=== PATIENT | male | born 1990 | race Caucasian/White ===

== ENCOUNTER 2016-07-18 11:17 | Emergency (ER) | payer SELFPAY ==
[~2016-07-18] VITALS: Ht 167.6 cm; Wt 104.5 kg
[~2016-07-18 11:17] MED LIST: DICL50 PO; ROBA750T3 PO
[2016-07-18 11:19] VITALS: BP 166/90; PULSE 134; RESP 17; TEMP 101.5; O2SAT 97
--- NOTE | 2016-07-18 11:31 | PD ---
HPI Chief Complaint: Cold / Flu Symptoms Time Seen by Provider: 11:30 Travel History International Travel<30 days: No Contact w/Intl Traveler<30days: No Traveled to known affect area: No History of Present Illness HPI 25-year-old male with PMH of hypertension presents to the ED for evaluation of a 5 day history of body aches, malaise, fevers, chills, sinus congestion, nausea and vomiting. Gradual onset. Patient denies anorexia, change in bowel habits, neck pain, back pain, dysuria. He's been treating at home with Tammy with no improvement of symptoms. Endorses multiple sick contacts, stating all his schoolmates are ill. He denies this years flu immunization. NKDA. PFSH Past Medical History Cardiovascular Problems: Yes (HIGH CHOLESTEROL, HTN ) Hypertension: Yes Social History Alcohol Use: Yes (occ) Tobacco Use: No Substance Use: No Allergies-Medications (Allergen,Severity, Reaction): Coded Allergies: No Known Allergies (Unverified , 07/18/16) Reported Meds & Prescriptions Reported Meds & Active Scripts Active Zofran Odt (Ondansetron Odt) 4 Mg Tab 4 Mg SL Q8HR PRN Ibuprofen 800 Mg Tab 800 Mg PO TID Reported Aspirin 81 Mg Chew 81 Mg CHEW DAILY Review of Systems Except as stated in HPI: all other systems reviewed are Neg Physical Exam Narrative GENERAL: Well-nourished, well-developed ill-appearing male in no acute distress. SKIN: Warm and dry. HEAD: Normocephalic. Atraumatic. EYES: No scleral icterus. No injection or drainage. PERRLA. EOMI. ENT: [place] tympanic membranes bilaterally. Nasal mucosa is moist. Oropharynx mildly erythematous without edema or exudate. Uvula midline. Airway patent. NECK: Supple, trachea midline. No JVD. Tender bilateral submandibular LAD. No nuchal rigidity. CARDIOVASCULAR: Regular rate and rhythm without murmurs, gallops, or rubs. 2+ DP and radial pulses bilaterally. RESPIRATORY: Breath sounds clear and equal bilaterally. No accessory muscle use. GASTROINTESTINAL: Abdomen soft, non-tender, nondistended. + Bowel sounds MUSCULOSKELETAL: No cyanosis, or edema. The patient is ambulatory and moves extremities spontaneously. BACK: Nontender without obvious deformity. No CVA tenderness. Data Data Last Documented VS Vital Signs Date Time Temp Pulse Resp B/P Pulse Ox O2 Delivery O2 Flow Rate FiO2 07/18/16 14:07 102 07/18/16 13:36 98.9 22 127/56 99 Room Air Orders Electrocardiogram (07/18/16 11:41) Complete Blood Count With Diff (07/18/16 11:41) Comprehensive Metabolic Panel (07/18/16 11:41) Group A Rapid Strep Screen (07/18/16 11:41) Influenzae A/B Antigen (07/18/16 11:41) Chest, Single Ap (07/18/16 11:41) Ecg Monitoring (07/18/16 11:41) Iv Access Insert/Monitor (07/18/16 11:41) Oximetry (07/18/16 11:41) Acetaminophen (Tylenol) (07/18/16 11:45) Sodium Chloride 0.9% Flush (Ns Flush) (07/18/16 11:45) Ondansetron Odt (Zofran Odt) (07/18/16 11:45) Sodium Chlor 0.9% 1000 Ml Inj (Ns 1000 M (07/18/16 11:45) Strep Culture (Group A) (07/18/16 11:51) Sodium Chlor 0.9% 1000 Ml Inj (Ns 1000 M (07/18/16 13:15) Ketorolac Inj (Toradol Inj) (07/18/16 13:30) Labs Laboratory Tests Test 07/18/16 11:51 White Blood Count 8.6 TH/MM3 Red Blood Count 5.40 MIL/MM3 Hemoglobin 15.0 GM/DL Hematocrit 45.0 % Mean Corpuscular Volume 83.3 FL Mean Corpuscular Hemoglobin 27.7 PG Mean Corpuscular Hemoglobin 33.3 % Concent Red Cell Distribution Width 13.2 % Platelet Count 183 TH/MM3 Mean Platelet Volume 7.6 FL Neutrophils (%) (Auto) 74.0 % Lymphocytes (%) (Auto) 10.4 % Monocytes (%) (Auto) 12.7 % Eosinophils (%) (Auto) 2.2 % Basophils (%) (Auto) 0.7 % Neutrophils # (Auto) 6.4 TH/MM3 Lymphocytes # (Auto) 0.9 TH/MM3 Monocytes # (Auto) 1.1 TH/MM3 Eosinophils # (Auto) 0.2 TH/MM3 Basophils # (Auto) 0.1 TH/MM3 CBC Comment DIFF FINAL Differential Comment Sodium Level 140 MEQ/L Potassium Level 3.9 MEQ/L Chloride Level 106 MEQ/L Carbon Dioxide Level 25.8 MEQ/L Anion Gap 8 MEQ/L Blood Urea Nitrogen 9 MG/DL Creatinine 1.17 MG/DL Estimat Glomerular Filtration 77 ML/MIN Rate Random Glucose 111 MG/DL Calcium Level 8.6 MG/DL Total Bilirubin 0.4 MG/DL Aspartate Amino Transf 27 U/L (AST/SGOT) Alanine Aminotransferase 52 U/L (ALT/SGPT) Alkaline Phosphatase 70 U/L Total Protein 7.1 GM/DL Albumin 3.8 GM/DL [facility] Medical Decision Making Medical Screen Exam Complete: Yes Emergency Medical Condition: Yes Differential Diagnosis Influenza versus viral syndrome versus pharyngitis versus pneumonia versus other Narrative Course 25-year-old male with PMH of hypertension presents to the ED for evaluation of a 5 day history of body aches, malaise, fevers, chills, sinus congestion, nonproductive cough, nausea and vomiting. Gradual onset. Patient denies anorexia, change in bowel habits, neck pain, back pain, dysuria. Endorses multiple sick contacts, stating all his schoolmates are ill. He denies this years flu immunization. Vitals reviewed. The patient is tachycardic rate 134 and febrile 101.5 on presentation. Physical exam reveals an ill-appearing male in no acute distress but is otherwise unremarkable. IV was established. The patient was placed on continuous monitoring. He was administered 2 L normal saline bolus, Tylenol, Zofran, Toradol. CBC: No leukocytosis or anemia. CMP: Unremarkable. EKG rate 123, sinus tachycardia. Normal intervals. Normal axis. No ischemic changes. Reviewed by Dr. Bailey. CXR: No acute cardiopulmonary abnormality per radiology read. Group A strep swab: Negative. Influenza swab: Positive for influenza A. On recheck the patient is afebrile, heart rate 102. Patient's been symptomatic beyond 48 hours. No indication for Tamiflu. He is prescribed 800 mg ibuprofen and Zofran. He is encouraged to treat symptomatically with ibuprofen, Zofran, increase fluid intake, isolate from vulnerable populations, return to the ED for worsening of symptoms. He indicated understanding of the instructions, is amenable to the plan of care. He is stable and discharged home. Diagnosis Primary Impression: Influenza A Referrals: Primary Care Physician Patient Instructions: General Instructions, Influenza (ED) Additional Instructions: Rest, hydrate. Continue symptomatic treatment with 800 mg ibuprofen every 8 hours as needed for fever, body aches. Zofran ODT as needed for continued nausea. Increased handwashing frequency, isolate from vulnerable populations, wash all bedding after illness. Follow-up with the primary care provider this week. Return to the ED for any urgent or emergent medical condition. Med/Other Pt SpecificInfo: Prescription(s) given Scripts Ondansetron Odt (Zofran Odt)4 Mg Tab4 Mg SL Q8HR PRN (Nausea/Vomiting) #5 TAB Ref 0 Prov:López Bailey MD 07/18/16 Ibuprofen 800 Mg [id number] Mg PO TID #15 TAB Ref 0 Prov:López Bailey MD 07/18/16 Disposition: 01 DISCHARGE HOME Condition: Stable Jessie Shah Jul 18, 2016 11:31
[2016-07-18] MEDS ORDERED: ASPI81CH CHEW (11:34)
[2016-07-18] MEDS ORDERED: SODIUM CHLORIDE 0.9% FLUSH 5 ML FLUSH IVF PRN (11:45)
[2016-07-18] MEDS ORDERED: SODIUM CHLOR 0.9% 1000 ML INJ 1,000 ML IV ONE ×2 (11:45→13:15)
[2016-07-18] MEDS ORDERED: ONDANSETRON ODT 4 MG TAB PO ONE (11:45)
[2016-07-18] MEDS ORDERED: ACETAMINOPHEN 325 MG TAB PO ONE (11:45)
[2016-07-18 11:46] VITALS: BP 169/98; PULSE 134; RESP 20; TEMP 102.3; O2SAT 96
[2016-07-18 11:52] VITALS: O2SAT 96
--- NOTE | 2016-07-18 12:13 | RADRPT ---
EXAM DATE/TIME: 07/18/2016 11:52 [facility] COMPARISON: No previous studies available for comparison. INDICATIONS : Fever MEDICAL HISTORY : Hypertension. SURGICAL HISTORY : None. ENCOUNTER: Initial ACUITY: 1 week PAIN SCORE: 0/10 LOCATION: Bilateral chest FINDINGS: Portable AP view of the chest demonstrates a normal-sized cardiac silhouette. No effusion, consolidat ion, or pneumothorax is visualized. The bones and soft tissues demonstrate no acute abnormality. CONCLUSION: No acute cardiopulmonary abnormality is identified. Darrius Adam MD on July 18, 2016 at 12:12 Board Certified Radiologist. This report was verified electronically.
[2016-07-18 12:32] LABS: AUTOMATED NEUTROPHIL # 6.4 TH/MM3 (1.8-7.7); BASOPHIL # 0.1 TH/MM3 (0-0.2); BASOPHIL % 0.7 % (0.0-2.0); EOSINOPHIL # 0.2 TH/MM3 (0-0.4); EOSINOPHIL % 2.2 % (0.0-4.0); HEMO FLAGS DIFF FINAL; LYMPH % 10.4 % (9.0-44.0); LYMPHOCYTE # 0.9 TH/MM3 (1.0-4.8); MEAN CELL VOLUME 83.3 FL (80.0-100.0); MEAN CORPUSCULAR HEMOGLOBIN 27.7 PG (27.0-34.0); MEAN CORPUSCULAR HGB CONC 33.3 % (32.0-36.0); MONO % 12.7 % (0.0-8.0); PLATELET COUNT 183 TH/MM3 (150-450); RED CELL DISTRIBUTION WIDTH 13.2 % (11.6-17.2); WHITE BLOOD COUNT 8.6 TH/MM3 (4.0-11.0)
[2016-07-18 13:08] LABS: ALKALINE PHOSPHATASE 70 U/L (45-117); ALT (GPT) 52 U/L (12-78); ANION GAP 8 MEQ/L (5-15); AST (GOT) 27 U/L (15-37); BICARBONATE 25.8 MEQ/L (21.0-32.0); BLOOD UREA NITROGEN 9 MG/DL (7-18); CHLORIDE 106 MEQ/L (98-107); GLOMERULAR FILTRATION RATE 77 ML/MIN (>89); POTASSIUM 3.9 MEQ/L (3.5-5.1); SODIUM (NA) 140 MEQ/L (136-145); TOTAL BILIRUBIN ADULT 0.4 MG/DL (0.2-1.0)
[2016-07-18] MEDS ORDERED: KETOROLAC TROMETHAMINE 30 MG/ML (IVP) VIAL IV PUSH ONE (13:30)
[2016-07-18 13:36] VITALS: BP 127/56; PULSE 122; RESP 22; TEMP 98.9; O2SAT 99
[2016-07-18] MEDS ORDERED: IBUP800T23 PO (13:50)
[2016-07-18] MEDS ORDERED: ZOFR4TAB3 SL (13:50)
--- NOTE | 2016-07-19 16:39 | EKG ---
Date Performed: 07/18/2016 Time Performed: 12:10:33 PTAGE: 25 years EKG: SINUS TACHYCARDIA ABNORMAL RHYTHM ECG INTERPRETATION BASED ON A DEFAULT AGE OF 41 YEARS NO PREVIOUS TRACING DOCTOR: Alma Berman Interpretating Date/Time 07/19/2016 16:37:08
== END 2016-07-18 14:50 | disposition home or self-care (01) ==
LOC: NEPA 11:17
DX: J09.X2 Influenza due to identified novel influenza A virus with other respiratory manifestations (principal); I10 Essential (primary) hypertension
CPT/HCPCS: 71010; 80053; 85025; 87081; 87804; 87880; 93005; 96361; 96374; 99284; J1885; J7030

== ENCOUNTER 2016-09-23 17:14 | Observation (INO) | payer OTHER ==
[~2016-09-23] VITALS: Ht 167.6 cm; Wt 110.0 kg
[~2016-09-23 17:14] MED LIST changes: +ASPI81CH CHEW; -DICL50 PO; +IBUP800T23 PO; -ROBA750T3 PO; +ZOFR4TAB3 SL
[2016-09-23 17:20] VITALS: BP 180/89; PULSE 105; RESP 20; TEMP 98.1; O2SAT 99
--- NOTE | 2016-09-23 17:26 | PD ---
Physical Exam Date Seen by Provider: Sep 23, 2016 Time Seen by Provider: 17:21 Narrative Patient seen in triage with [facility] REEVES upon waking this am, with C/O left sided weakness and tingling in left arm. No Nausea, Vomiting or fever. Patient states REEVES is an 8/10. Patient states Hx REEVES years ago, but none lately. Patient takes no medications. No Hx Stroke or Blood Clots in the past. Patient has Hx HTN, but takes no meds. VS 180/89 Pulse 20. Patient awaiting bed placement. Data Data Last Documented VS Vital Signs Date Time Temp Pulse Resp B/P Pulse Ox O2 Delivery O2 Flow Rate FiO2 09/23/16 17:20 98.1 105 20 180/89 99 MDM Medical Record Reviewed: Yes Supervised Visit with YESSICA: Yes Condition: Stable Miles Kolb Sep 23, 2016 17:26
[2016-09-23 18:14] VITALS: BP 164/95; PULSE 94; RESP 18; O2SAT 97
[2016-09-23] MEDS ORDERED: SODIUM CHLOR 0.9% 1000 ML INJ 1,000 ML IV ONE (18:20)
[2016-09-23 18:23] VITALS: RESP 18; O2SAT 98
[2016-09-23] MEDS ORDERED: SODIUM CHLORIDE 0.9% FLUSH 10 ML FLUSH IVF PRN (18:30)
[2016-09-23 18:55] LABS: APTT (PATIENT) 25.7 SEC (24.3-30.1); PROTHROMBIN TIME - PATIENT 10.8 SEC (9.8-11.6)
[2016-09-23 18:56] LABS: AUTOMATED NEUTROPHIL # 5.6 TH/MM3 (1.8-7.7); BASOPHIL # 0.1 TH/MM3 (0-0.2); BASOPHIL % 0.8 % (0.0-2.0); EOSINOPHIL # 0.2 TH/MM3 (0-0.4); EOSINOPHIL % 1.9 % (0.0-4.0); HEMATOCRIT 44.9 % (39.0-51.0); HEMO FLAGS DIFF FINAL; LYMPH % 25.4 % (9.0-44.0); LYMPHOCYTE # 2.2 TH/MM3 (1.0-4.8); MEAN CELL VOLUME 82.9 FL (80.0-100.0); MEAN CORPUSCULAR HGB CONC 33.7 % (32.0-36.0); MONO % 8.2 % (0.0-8.0); NEUT % 63.7 % (16.0-70.0); PLATELET COUNT 200 TH/MM3 (150-450); RED BLOOD COUNT 5.42 MIL/MM3 (4.50-5.90); RED CELL DISTRIBUTION WIDTH 13.8 % (11.6-17.2); WHITE BLOOD COUNT 8.8 TH/MM3 (4.0-11.0)
--- NOTE | 2016-09-23 18:59 | RADRPT ---
EXAM DATE/TIME: 09/23/2016 18:34 [facility] COMPARISON: No previous studies available for comparison. INDICATIONS : General weakness,left side is weaker,headache. RADIATION DOSE: 44.05 CTDIvol (mGy) MEDICAL HISTORY : None SURGICAL HISTORY : None. ENCOUNTER: Initial ACUITY: 1 day PAIN SCALE: 8/10 LOCATION: cranial TECHNIQUE: Multiple contiguous axial images were obtained of the head. Using automated exposure control and adj ustment of the mA and/or kV according to patient size, radiation dose was kept as low as reasonably a chievable to obtain optimal diagnostic quality images. FINDINGS: CEREBRUM: The ventricles are normal for age. No evidence of midline shift, mass lesion, hemorrhage or acute in farction. No extra-axial fluid collections are seen. POSTERIOR FOSSA: There is a prominent CSF space posterior to the left cerebellar hemisphere consistent with probable a rachnoid cyst measuring 6.5 cm transverse by 2.0 cm AP. The cerebellum and brainstem are intact. The 4th ventricle is midline. The cerebellopontine angle is unremarkable. EXTRACRANIAL: The visualized portion of the orbits is intact. SKULL: The calvaria is intact. No evidence of skull fracture. CONCLUSION: 1. No acute hemorrhage, infarct, mass effect or midline shift. 2. Prominent CSF space posterior to the left cerebellar hemisphere consistent with probable arachnoid cyst measuring 6.5 cm transverse by 2.0 cm AP. López Wilson MD on September 23, 2016 at 18:54 Board Certified Radiologist. This report was verified electronically.
[2016-09-23 19:15] LABS: ALKALINE PHOSPHATASE 77 U/L (45-117); ALT (GPT) 64 U/L (12-78); ANION GAP 7 MEQ/L (5-15); AST (GOT) 39 U/L (15-37); BICARBONATE 29.3 MEQ/L (21.0-32.0); BLOOD UREA NITROGEN 13 MG/DL (7-18); CHLORIDE 104 MEQ/L (98-107); GLOMERULAR FILTRATION RATE 94 ML/MIN (>89); POTASSIUM 4.6 MEQ/L (3.5-5.1); SODIUM (NA) 140 MEQ/L (136-145); TOTAL BILIRUBIN ADULT 0.6 MG/DL (0.2-1.0)
[2016-09-23] MEDS ORDERED: KETOROLAC TROMETHAMINE 30 MG/ML (IVP) VIAL IV PUSH ONE (19:30)
[2016-09-23] MEDS ORDERED: ONDANSETRON HCL 4 MG/2 ML VIAL IV PUSH ONE (19:30)
--- NOTE | 2016-09-23 19:38 | PD ---
HPI Chief Complaint: Neuro Symptoms/ Deficits Time Seen by Provider: 19:19 Travel History International Travel<30 days: No Contact w/Intl Traveler<30days: No Traveled to known affect area: No History of Present Illness HPI 26yo M presents to the ED with c/o headache since this morning. Headache is front to back, constant, and associated with lightheadedness and photophobia. Pt also with left arm weakness, numbness and tinging in the left 2-5 digits since around 2:30pm today. Had headaches before but havent for a while. Informed he had cyst in his brain when he was in 7th grade and had headaches then but never followed up. Denies any fever, neck pain, chest pain, sob, n/v, abdominal pain. PFSH Past Medical History Medical History: Denies Significant Hx Cardiovascular Problems: Yes (HTN) Hypertension: Yes Tetanus Vaccination: > 5 Years Influenza Vaccination: No Past Surgical History Surgical History: No Previous Surgery Social History Alcohol Use: No (occ) Tobacco Use: No Substance Use: No Allergies-Medications (Allergen,Severity, Reaction): Coded Allergies: Morphine (Verified Allergy, Severe, ANAPHYLAXIS, 09/23/16) Reported Meds & Prescriptions Reported Meds & Active Scripts Active Ibuprofen 800 Mg Tab 800 Mg PO TID Review of Systems Except as stated in HPI: all other systems reviewed are Neg Physical Exam Narrative GENERAL: 26yo M in mild distress. SKIN: Focused skin assessment warm/dry. HEAD: Atraumatic. Normocephalic. EYES: Pupils equal and round. No scleral icterus. No injection or drainage. ENT: No nasal bleeding or discharge. Mucous membranes pink and moist. NECK: Trachea midline. No JVD. CARDIOVASCULAR: Regular rate and rhythm. No murmur appreciated. RESPIRATORY: No accessory muscle use. Clear to auscultation. Breath sounds equal bilaterally. GASTROINTESTINAL: Abdomen soft, non-tender, nondistended. Hepatic and splenic margins not palpable. MUSCULOSKELETAL: No obvious deformities. No clubbing. No cyanosis. No edema. NEUROLOGICAL: Awake and alert. No obvious cranial nerve deficits. Decreased decorative greens cutter in left hand compare to right. Decreased sensation in left arm. Tingling in tips of digits 2-5. PSYCHIATRIC: Appropriate mood and affect; insight and judgment normal. Data Data Last Documented VS Vital Signs Date Time Temp Pulse Resp B/P Pulse Ox O2 Delivery O2 Flow Rate FiO2 09/23/16 19:51 91 18 144/87 97 Room Air 09/23/16 17:20 98.1 Orders Complete Blood Count With Diff (09/23/16 18:20) Comprehensive Metabolic Panel (09/23/16 18:20) Prothrombin Time / Inr (Pt) (09/23/16 18:20) Act Partial Throm Time (Ptt) (09/23/16 18:20) Ct Brain W/O Iv Contrast(Rout) (09/23/16 18:20) Ecg Monitoring (09/23/16 18:20) Iv Access Insert/Monitor (09/23/16 18:20) Oximetry (09/23/16 18:20) Sodium Chloride 0.9% Flush (Ns Flush) (09/23/16 18:30) Sodium Chlor 0.9% 1000 Ml Inj (Ns 1000 M (09/23/16 18:20) Ketorolac Inj (Toradol Inj) (09/23/16 19:30) Ondansetron Inj (Zofran Inj) (09/23/16 19:30) Aspirin (Aspirin) (09/23/16 19:45) Consult Neurology (09/23/16 ) Consult Neurosurgery (09/23/16 ) Mri Brain W&W/O Contrast (09/23/16 ) Admit Order (Ed Use Only) (09/23/16 19:57) Place In Observation (09/23/16 ) Vital Signs (Adult) Q4H (09/23/16 19:57) Neuro Checks Q4H (09/23/16 19:57) Activity Oob With Assistance (09/23/16 19:57) Youth Probation Officer / Telemetry .CONTINUOUS (09/23/16 19:57) Diet Heart Healthy (09/24/16 Breakfast) Sodium Chloride 0.9% Flush (Ns Flush) (09/23/16 20:00) Sodium Chloride 0.9% Flush (Ns Flush) (09/23/16 21:00) Case Management Consult (09/23/16 19:57) Scd Bilateral/Knee High RL.BID (09/23/16 19:57) Naloxone Inj (Narcan Inj) (09/23/16 20:00) Labs Laboratory Tests Test 09/23/16 18:25 White Blood Count 8.8 TH/MM3 Red Blood Count 5.42 MIL/MM3 Hemoglobin 15.2 GM/DL Hematocrit 44.9 % Mean Corpuscular Volume 82.9 FL Mean Corpuscular Hemoglobin 28.0 PG Mean Corpuscular Hemoglobin 33.7 % Concent Red Cell Distribution Width 13.8 % Platelet Count 200 TH/MM3 Mean Platelet Volume 7.5 FL Neutrophils (%) (Auto) 63.7 % Lymphocytes (%) (Auto) 25.4 % Monocytes (%) (Auto) 8.2 % Eosinophils (%) (Auto) 1.9 % Basophils (%) (Auto) 0.8 % Neutrophils # (Auto) 5.6 TH/MM3 Lymphocytes # (Auto) 2.2 TH/MM3 Monocytes # (Auto) 0.7 TH/MM3 Eosinophils # (Auto) 0.2 TH/MM3 Basophils # (Auto) 0.1 TH/MM3 CBC Comment DIFF FINAL Differential Comment Prothrombin Time 10.8 SEC Prothromb Time International 1.0 RATIO Ratio Activated Partial 25.7 SEC Thromboplast Time Sodium Level 140 MEQ/L Potassium Level 4.6 MEQ/L Chloride Level 104 MEQ/L Carbon Dioxide Level 29.3 MEQ/L Anion Gap 7 MEQ/L Blood Urea Nitrogen 13 MG/DL Creatinine 0.97 MG/DL Estimat Glomerular Filtration 94 ML/MIN Rate Random Glucose 97 MG/DL Calcium Level 9.0 MG/DL Total Bilirubin 0.6 MG/DL Aspartate Amino Transf 39 U/L (AST/SGOT) Alanine Aminotransferase 64 U/L (ALT/SGPT) Alkaline Phosphatase 77 U/L Total Protein 7.3 GM/DL Albumin 3.8 GM/DL [facility] Medical Decision Making Medical Screen Exam Complete: Yes Emergency Medical Condition: Yes Interpretation(s) Laboratory Tests Test 09/23/16 18:25 White Blood Count 8.8 TH/MM3 (4.0-11.0) Red Blood Count 5.42 MIL/MM3 (4.50-5.90) Hemoglobin 15.2 GM/DL (13.0-17.0) Hematocrit 44.9 % (39.0-51.0) Mean Corpuscular Volume 82.9 FL (80.0-100.0) Mean Corpuscular Hemoglobin 28.0 PG (27.0-34.0) Mean Corpuscular Hemoglobin 33.7 % Concent (32.0-36.0) Red Cell Distribution Width 13.8 % (11.6-17.2) Platelet Count 200 TH/MM3 (150-450) Mean Platelet Volume 7.5 FL (7.0-11.0) Neutrophils (%) (Auto) 63.7 % (16.0-70.0) Lymphocytes (%) (Auto) 25.4 % (9.0-44.0) Monocytes (%) (Auto) 8.2 % (0.0-8.0) Eosinophils (%) (Auto) 1.9 % (0.0-4.0) Basophils (%) (Auto) 0.8 % (0.0-2.0) Neutrophils # (Auto) 5.6 TH/MM3 (1.8-7.7) Lymphocytes # (Auto) 2.2 TH/MM3 (1.0-4.8) Monocytes # (Auto) 0.7 TH/MM3 (0-0.9) Eosinophils # (Auto) 0.2 TH/MM3 (0-0.4) Basophils # (Auto) 0.1 TH/MM3 (0-0.2) CBC Comment DIFF FINAL Differential Comment Prothrombin Time 10.8 SEC (9.8-11.6) Prothromb Time International 1.0 RATIO Ratio Activated Partial 25.7 SEC Thromboplast Time (24.3-30.1) Sodium Level 140 MEQ/L (136-145) Potassium Level 4.6 MEQ/L (3.5-5.1) Chloride Level 104 MEQ/L (98-107) Carbon Dioxide Level 29.3 MEQ/L (21.0-32.0) Anion Gap 7 MEQ/L (5-15) Blood Urea Nitrogen 13 MG/DL (7-18) Creatinine 0.97 MG/DL (0.60-1.30) Estimat Glomerular Filtration 94 ML/MIN (>89) Rate Random Glucose 97 MG/DL (74-106) Calcium Level 9.0 MG/DL (8.5-10.1) Total Bilirubin 0.6 MG/DL (0.2-1.0) Aspartate Amino Transf 39 U/L (15-37) (AST/SGOT) Alanine Aminotransferase 64 U/L (12-78) (ALT/SGPT) Alkaline Phosphatase 77 U/L (45-117) Total Protein 7.3 GM/DL (6.4-8.2) Albumin 3.8 GM/DL (3.4-5.0) Last Impressions Head CT 09/23/16 1820 Signed Impressions: Service Date/Time: August 18:34 - CONCLUSION: 1. No acute hemorrhage, infarct, mass effect or midline shift. 2. Prominent CSF space posterior to the left cerebellar hemisphere consistent with probable arachnoid cyst measuring 6.5 cm transverse by 2.0 cm AP. López Wilson MD Head Magnetic Resonance Angiography 09/23/16 0000 Signed Impressions: Service Date/Time: August 20:54 - CONCLUSION: No acute disease. López Wilson MD Carotid Artery Ultrasound 09/23/16 0000 Signed Impressions: Service Date/Time: August 21:28 - CONCLUSION: No acute disease. López Wilson MD Brain MRI 09/23/16 0000 Signed Impressions: Service Date/Time: August 20:54 - CONCLUSION: 1. Arachnoid cyst posterior to the left cerebellar hemisphere measuring 6.5 x 2.0 cm. 2. No acute infarct, acute hemorrhage, midline shift or abnormal enhancing mass lesion. López Wilson MD Differential Diagnosis Complicated migraine vs. ICH vs. hypertensive emergency Narrative Course 26yo M with symptoms that is likely complicated migraine. Labs reviewed, unremarkable. CT brain showed no acute hemorrhage, infarct. Prominent CSF space posterior to left cerebellar hemisphere consistent with probable arachnoid cyst measuring 6.5cm by 2.0cm. Discussed with neurologist Dr. Ovalle who recommended admitting pt and obtaining MRI brain, routine neurosurgery consult as well as aspirin. Discussed with Dr. Plunkett and accepted to her service. Diagnosis Primary Impression: Arachnoid cyst Admitting Information Admitting Physician Requests: Admit Condition: Stable Merlene Hdez DO Sep 23, 2016 19:38
[2016-09-23] MEDS ORDERED: ASPIRIN 325 MG TAB PO ONE (19:45)
[2016-09-23 19:51] VITALS: BP 144/87; PULSE 91; RESP 18; O2SAT 97
[2016-09-23] MEDS ORDERED: SODIUM CHLORIDE 0.9% FLUSH 10 ML FLUSH IV FLUSH PRN (20:00)
[2016-09-23] MEDS ORDERED: NALOXONE HCL 0.4 MG/ML AMP IV PRN (20:00)
[2016-09-23] MEDS: SODIUM CHLORIDE 0.9% FLUSH 10 ML FLUSH IV FLUSH SCH ×2 (21:25→23:49)
[2016-09-23] MEDS ORDERED: GADODIAMIDE PF 287 MG/ML 20 ML VIAL (for RAD MRI) IV ONE (21:36)
--- NOTE | 2016-09-23 21:55 | RADRPT ---
EXAM DATE/TIME: 09/23/2016 20:54 [facility] COMPARISON: CT BRAIN W/O CONTRAST, September 23, 2016, 18:34. INDICATIONS : Mass. Probable arachnoid cyst. CONTRAST: 20 cc Omniscan (gadodiamide) IV MEDICAL HISTORY : Hypertension. Hypercholesterolemia. SURGICAL HISTORY : None. ENCOUNTER: Subsequent ACUITY: 1 day PAIN SCORE: 8/10 LOCATION: cranial TECHNIQUE: Multiplanar, multisequence MRI of the brain was performed both prior to and following the administrat ion of paramagnetic contrast. FINDINGS: CEREBRUM: The ventricles are normal for age. No evidence of midline shift, mass lesion, hemorrhage or acute in farction. No extraaxial fluid collections are seen. The pituitary gland and suprasellar cistern are normal in configuration. WHITE MATTER: No significant signal abnormalities are seen in the white matter. POSTERIOR FOSSA: There is an arachnoid cyst in the left cerebellar hemisphere which measures 6.5 x 2.0 cm. The cerebel lum and brainstem are intact. The 4th ventricle is midline. The cerebellopontine angle is unremarkab le. The cerebellar tonsils are normal in position. DIFFUSION IMAGING: No focal areas of restricted diffusion are seen. No evidence of acute infarction. EXTRACRANIAL: The visualized portions of the orbits and paranasal sinuses are unremarkable. POST-CONTRAST: No abnormal areas of parenchymal or dural enhancement. No evidence of blood-brain barrier breakdown. CONCLUSION: 1. Arachnoid cyst posterior to the left cerebellar hemisphere measuring 6.5 x 2.0 cm. 2. No acute infarct, acute hemorrhage, midline shift or abnormal enhancing mass lesion. López Wilson MD on September 23, 2016 at 21:48 Board Certified Radiologist. This report was verified electronically.
--- NOTE | 2016-09-23 21:56 | RADRPT ---
EXAM DATE/TIME: 09/23/2016 20:54 [facility] COMPARISON: No previous studies available for comparison. INDICATIONS : Headache. MEDICAL HISTORY : Hypertension. Hypercholesterolemia. SURGICAL HISTORY : None. ENCOUNTER: Subsequent ACUITY: 1 day PAIN SCORE: 8/10 LOCATION: cranial Please note a normal MRA of the brain does not entirely exclude the possibility of a small aneurysm, nor the possibility of distal intracranial vessel disease. TECHNIQUE: 3D time of flight MRA was performed. Source images, multiplanar STS MIP, and 3D volume MIP reconstru ctions were reviewed. FINDINGS: There is excellent visualization of the major intracranial arteries out to the second-order branch ve ssels. There is no evidence for aneurysm, vessel truncation or stenosis, and no evidence for vascula r malformation. CONCLUSION: No acute disease. López Wilson MD on September 23, 2016 at 21:54 Board Certified Radiologist. This report was verified electronically.
--- NOTE | 2016-09-23 22:12 | RADRPT ---
EXAM DATE/TIME: 09/23/2016 21:28 [facility] COMPARISON: No previous studies available for comparison. INDICATIONS : Transient ischemic attack. MEDICAL HISTORY : Hypertension. SURGICAL HISTORY : None. ENCOUNTER: Initial ACUITY: 1 day PAIN SCORE: 8/10 LOCATION: Bilateral neck PEAK SYSTOLIC VELOCITIES (cm/sec): ICA/CCA RATIO: Right: 1.0 Left: 0.9 ICA: Right: 86 Left: 81 CCA: Right: 87 Left: 89 ECA: Right: 108 Left: 89 VERTEBRAL: Right: 41 antegrade Left: 52 antegrade Elevated flow velocities and ICA/CCA ratios have been found to correlate with increased degrees of vessel stenosis, calculated as percentage of diameter relative to a normal segment of distal ICA/CCA FINDINGS: RIGHT CAROTID: No significant stenosis is visualized. The waveforms are within normal limits. LEFT CAROTID: No significant stenosis is visualized. The waveforms are within normal limits. VERTEBRAL ARTERIES: Antegrade flow is seen in both vertebral arteries. MISCELLANEOUS: None. CONCLUSION: No acute disease. López Wilson MD on September 23, 2016 at 22:10 Board Certified Radiologist. This report was verified electronically.
[2016-09-23 22:59] VITALS: BP 129/80; PULSE 83; RESP 18; O2SAT 97
--- NOTE | 2016-09-24 00:48 | HHI.HP ---
[facility] No Primary Care Physician Admission Diagnosis Arachnoid cyst Diagnoses: Chief Complaint: headache Travel History International Travel<30 Days: No Contact w/Intl Traveler <30 Da: No Traveled to Known Affected Are: No History of Present Illness 26 y/ow with a history of HTN (not currently on medication) presented to the ED with complaints of having a severe headache today. He states he woke up today and had a severe headache and he thought he got up too soon so he tried to sleep it off, but when he woke up again he had left arm numbness and tingling including fingers, and heaviness with his arm and he was unable to move it. He also complains of having palpitations when he woke up. He currently is able to move his left arm. He also felt some tingling in his left leg for a short period while in the hospital. He explains that in 7th grade he suffered headaches but nothing this severe, but did not have a cyst at this time. He states he has headaches about once a month and only takes Aleve for it. He denies any chest pain, fever, chills or nausea. He does say he have some neck stiffness, but he does have full ROM. Review of Systems Constitutional: DENIES: Fever, Chills Respiratory: DENIES: Cough, Sputum production, Shortness of breath Cardiovascular: DENIES: Chest pain Gastrointestinal: DENIES: Abdominal pain, Diarrhea, Nausea, Vomiting Genitourinary: DENIES: Dysuria Musculoskeletal: COMPLAINS OF: Neck pain, DENIES: Joint pain, Back pain Integumentary: DENIES: Rash Neurologic: COMPLAINS OF: Headache, Localized weakness Past Family Social History Past Medical History HTN (not on any medication) Past Surgical History Patient denies any surgical history Reported Medications Reported Meds & Active Scripts Active Ibuprofen 800 Mg Tab 800 Mg PO TID Allergies: Coded Allergies: Morphine (Verified Allergy, Severe, ANAPHYLAXIS, 09/23/16) Active Ordered Medications Current Medications Medications (Trade) Dose Ordered Sig/Delgado Route Start Time Stop Time Status Last Admin (NS Flush) 2 ml UNSCH PRN IV FLUSH 09/23/16 20:00 (NS Flush) 2 ml BID IV FLUSH 09/23/16 21:00 09/23/16 23:49 (Narcan Inj) 0.4 mg UNSCH PRN IV 09/23/16 20:00 (Ecotrin Ec) 325 mg DAILY PO 09/24/16 09:00 Family History Mom: HTN Dad: HTN, heart disease Social History Tobacco use: Denies Alcohol use: Denies Illicit drug use: Denies Physical Exam Vital Signs Vital Signs Date Time Temp Pulse Resp B/P Pulse Ox O2 Delivery O2 Flow Rate FiO2 09/23/16 23:49 18 09/23/16 22:59 83 18 129/80 97 Room Air 09/23/16 19:51 91 18 144/87 97 Room Air 09/23/16 18:23 18 98 Room Air 09/23/16 18:14 97 18 97 Room Air 09/23/16 18:14 94 18 164/95 97 Room Air 09/23/16 17:20 98.1 105 20 180/89 99 Physical Exam GENERAL: This is a well-nourished, well-developed patient, in no apparent distress. SKIN: No rashes, ecchymoses or lesions. Cool and dry. HEAD: Atraumatic. Normocephalic. No temporal or scalp tenderness. EYES: Pupils equal round and reactive. Extraocular motions intact. ENT: Nose without bleeding, purulent drainage or septal hematoma. NECK: Trachea midline. No JVD or lymphadenopathy. Supple, nontender, no meningeal signs. CARDIOVASCULAR: Regular rate and rhythm without murmurs, gallops, or rubs. RESPIRATORY: Clear to auscultation. Breath sounds equal bilaterally. No wheezes , rales, or rhonchi. GASTROINTESTINAL: Abdomen soft, non-tender, nondistended. No hepato-splenomegaly , or palpable masses. No guarding. MUSCULOSKELETAL: Extremities without clubbing, cyanosis, or edema. No joint tenderness, effusion, or edema noted. No calf tenderness. Full ROM with neck, no rigidity. NEUROLOGICAL: Awake and alert. Motor and sensory grossly within normal limits. Minimal residual weakness in left upper extremity. Normal speech. Laboratory Laboratory Tests Test 09/23/16 18:25 White Blood Count 8.8 Red Blood Count 5.42 Hemoglobin 15.2 Hematocrit 44.9 Mean Corpuscular Volume 82.9 Mean Corpuscular Hemoglobin 28.0 Mean Corpuscular Hemoglobin 33.7 Concent Red Cell Distribution Width 13.8 Platelet Count 200 Mean Platelet Volume 7.5 Neutrophils (%) (Auto) 63.7 Lymphocytes (%) (Auto) 25.4 Monocytes (%) (Auto) 8.2 Eosinophils (%) (Auto) 1.9 Basophils (%) (Auto) 0.8 Neutrophils # (Auto) 5.6 Lymphocytes # (Auto) 2.2 Monocytes # (Auto) 0.7 Eosinophils # (Auto) 0.2 Basophils # (Auto) 0.1 CBC Comment DIFF FINAL Differential Comment Prothrombin Time 10.8 Prothromb Time International 1.0 Ratio Activated Partial 25.7 Thromboplast Time Sodium Level 140 Potassium Level 4.6 Chloride Level 104 Carbon Dioxide Level 29.3 Anion Gap 7 Blood Urea Nitrogen 13 Creatinine 0.97 Estimat Glomerular Filtration 94 Rate Random Glucose 97 Calcium Level 9.0 Total Bilirubin 0.6 Aspartate Amino Transf 39 (AST/SGOT) Alanine Aminotransferase 64 (ALT/SGPT) Alkaline Phosphatase 77 Total Protein 7.3 Albumin 3.8 Result Diagram: 09/23/16182409/23/161824 Imaging Last Impressions Head CT 09/23/161819 Signed Impressions: Service Date/Time: August 18:34 - CONCLUSION: 1. No acute hemorrhage, infarct, mass effect or midline shift. 2. Prominent CSF space posterior to the left cerebellar hemisphere consistent with probable arachnoid cyst measuring 6.5 cm transverse by 2.0 cm AP. López Wilson MD Head Magnetic Resonance Angiography 09/23/16 0000 Signed Impressions: Service Date/Time: August 20:54 - CONCLUSION: No acute disease. López Wilson MD Carotid Artery Ultrasound 09/23/16 0000 Signed Impressions: Service Date/Time: August 21:28 - CONCLUSION: No acute disease. López Wilson MD Brain MRI 09/23/16 0000 Signed Impressions: Service Date/Time: August 20:54 - CONCLUSION: 1. Arachnoid cyst posterior to the left cerebellar hemisphere measuring 6.5 x 2.0 cm. 2. No acute infarct, acute hemorrhage, midline shift or abnormal enhancing mass lesion. López Wilson MD Assessment and Plan Problem List: (1) Arachnoid cyst ICD Code: G93.0 Status: Acute (2) Head ache ICD Code: R51 Status: Acute Assessment and Plan 26 year old male with a history of HTN (not currently on medications) presented with complaints of a severe headache today. Arachnoid cyst Images: Brain MRI shows a Arachnoid cyst posterior to the left cerebellar hemisphere measuring 6.5 x 2.0 cm. MRA negative. -Consult neurosurgery for recommendations -Neuro checks Headache, likely related to Arachnoid cyst -Consult neurology for recommendations, DR. Ovalle will see patient -Us carotids/2d echo ordered by Dr. Ovalle -Lupus, Factor 5, Protein C, Protein S and prothrombin labs ordered by Dr. Ovalle -Cont ASA as ordered by Dr. Ovalle DVT prophylaxis: SCDs Written by MISSY Calabrese acting as scribe for Dr. Plunkett on 09/24/16 at 0145. All or portions of this note were transcribed by scribe [MISSY Calabrese]. I , Dr. Justin Plunkett personally performed the history, physical exam, and medical decision making; and confirmed the accuracy of the information in the transcribed note. Authenticated by Dr. Justin Plunkett on09/24/16 at 0145. Discussed Condition With Patient, RN and ED physician Kortney Gotti Sep 24, 2016 00:48 Justin Plunkett MD Sep 24, 2016 08:21
[2016-09-24 01:16] VITALS: BP 136/68; PULSE 74; RESP 18; O2SAT 98
--- NOTE | 2016-09-24 04:15 | PD.CONS ---
[facility] Service neurosurg Consult Requested By Michelle COPPOLA Reason for Consult arachnoid cyst Primary Care Physician No Primary Care Physician History of Present Illness This is a 26 y/ow with a history of HTN who presented to the ED with complaints of having headaches. He states he woke up and had a severe headache/. He thought he got up too soon so he tried to sleep it off, but when he woke up again he had left arm numbness and tingling including fingers, and heaviness with his arm. He also complains of palpitations when he woke up. He felt some tingling in his left leg for a short period while in the hospital. He reports that in 7th grade he suffered headaches but not this severe. He has headaches about once a month and only takes Aleve for it. He denies any chest pain, fever, chills or nausea. He does say he have some neck stiffness, but he does have full ROM. CT and MRI of the brain show an arachnoid cyst. Neurosurgical consultation was requested Review of Systems Constitutional: DENIES: Fever, Chills Respiratory: DENIES: Cough, Sputum production, Shortness of breath Cardiovascular: DENIES: Chest pain Gastrointestinal: DENIES: Abdominal pain, Diarrhea, Nausea, Vomiting Genitourinary: DENIES: Dysuria Musculoskeletal: COMPLAINS OF: Neck pain, DENIES: Joint pain, Back pain Integumentary: DENIES: Rash Neurologic: COMPLAINS OF: Headache, Localized weakness Past Family Social History Allergies: Coded Allergies: Morphine (Verified Allergy, Severe, ANAPHYLAXIS, 09/23/16) Past Medical History HTN Past Surgical History Patient denies any surgical history Reported Medications Ibuprofen 800 Mg Tab 800 Mg PO TID Active Ordered Medications Current Medications Sodium Chloride 2 ml 2 ml UNSCH PRN IVF FLUSH AFTER USING IV ACCESS; Start at 18:30; Stop 09/23/16 at 20:02; Status DC Sodium Chloride (NS 1000 ml Inj) 1,000 ml @ 1,000 mls/hr Q1H ONCE IV Last administered on 09/23/16t 19:53; Start 09/23/16 at 18:20; Stop 09/23/16 at 19:19 ; Status DC Ketorolac Tromethamine (Toradol Inj) 30 mg ONCE ONCE IV PUSH Last administered on 09/23/16 19:52; Start 09/23/16 at 19:30; Stop 09/23/16 at 19:31 ; Status DC Ondansetron HCl (Zofran Inj) 4 mg ONCE ONCE IV PUSH Last administered on 19:52; Start 09/23/16 at 19:30; Stop 09/23/16 at 19:31; Status DC Aspirin (Aspirin) 325 mg ONCE ONCE PO Last administered on 09/23/16 19:52; Start 09/23/16 at 19:45; Stop 09/23/16 at 19:46; Status DC Sodium Chloride (NS Flush) 2 ml UNSCH PRN IV FLUSH FLUSH AFTER USING IV ACCESS ; Start 09/23/16 at 20:00 Sodium Chloride (NS Flush) 2 ml BID IV FLUSH Last administered on 09/23/16 23: 49; Start 09/23/16 at 21:00 Naloxone HCl (Narcan Inj) 0.4 mg UNSCH PRN IV SEE LABEL COMMENTS; Start at 20:00 Aspirin (Ecotrin Ec) 325 mg DAILY PO ; Start 09/24/16 at 09:00 Gadodiamide (Omniscan Pf Inj) 20 ml STK-MED ONCE IV Last administered on 21:36; Start 09/23/16 at 21:36; Stop 09/23/16 at 21:37; Status DC Family History Mom: HTN Dad: HTN, heart disease Social History Tobacco use: Denies Alcohol use: Denies Illicit drug use: Denies Physical Exam Vital Signs Vital Signs Date Time Temp Pulse Resp B/P Pulse Ox O2 Delivery O2 Flow Rate FiO2 09/24/16 01:16 74 18 136/68 98 Room Air 09/23/16 23:49 18 09/23/16 22:59 83 18 129/80 97 Room Air 09/23/16 19:51 91 18 144/87 97 Room Air 09/23/16 18:23 18 98 Room Air 09/23/16 18:14 97 18 97 Room Air 09/23/16 18:14 94 18 164/95 97 Room Air 09/23/16 17:20 98.1 105 20 180/89 99 Physical Exam Mr Smith is alert, awake and oriented to time, place and person. Speech is fluent. Higher cognitive functions are normal. Cranial nerve examination demonstrates the pupils to be equal, round, and reactive to light. Extra-ocular movements are intact. Facial motor and sensory function are normal and symmetrical. Gross hearing is intact, bilaterally. The uvula is midline and elevates symmetrically with the soft palate. Sternocleidomastoid and trapezius muscles have normal and symmetrical strength. Other cranial nerves are intact. Neck is soft and supple. Cervical spine has a full range of motion in anterior flexion, extension, lateral bending, and rotation without pain. There is no tenderness to palpation to the spinous processes or paraspinal muscles. Muscle testing reveals normal bulk and tone overall without rigidity, spasticity , fasciculations, or atrophy. Muscle strength is 5/5 in all muscle groups of both upper extremities including deltoid, biceps, triceps, brachioradialis, wrist extension and ssrs developer. In the lower extremities, strength is 5/5 in both iliopsoas, quadriceps, hamstrings, plantar flexion, dorsiflexion, and extensor hallicus longus. Sensory examination is intact to light touch and sharp/dull discrimination in both the upper and lower extremities, symmetrically. Deep tendon reflexes are 2+ and symmetrical in the biceps, triceps, and brachioradialis, bilaterally, in the upper extremities. In the lower extremities , the patellar and Achilles are 2+, bilaterally. There is a bilateral plantar flexion response. Hoffmanns sign is negative. There is no clonus or other abnormal reflexes noted. Cerebellar examination is intact to [id number] test, rapid rhythmic alternating motion. There is no dysmetria, dysdiadochokinesia, truncal ataxia, or tremor. Laboratory Laboratory Tests Test 09/23/16 18:25 White Blood Count 8.8 Red Blood Count 5.42 Hemoglobin 15.2 Hematocrit 44.9 Mean Corpuscular Volume 82.9 Mean Corpuscular Hemoglobin 28.0 Mean Corpuscular Hemoglobin 33.7 Concent Red Cell Distribution Width 13.8 Platelet Count 200 Mean Platelet Volume 7.5 Neutrophils (%) (Auto) 63.7 Lymphocytes (%) (Auto) 25.4 Monocytes (%) (Auto) 8.2 Eosinophils (%) (Auto) 1.9 Basophils (%) (Auto) 0.8 Neutrophils # (Auto) 5.6 Lymphocytes # (Auto) 2.2 Monocytes # (Auto) 0.7 Eosinophils # (Auto) 0.2 Basophils # (Auto) 0.1 CBC Comment DIFF FINAL Differential Comment Prothrombin Time 10.8 Prothromb Time International 1.0 Ratio Activated Partial 25.7 Thromboplast Time Sodium Level 140 Potassium Level 4.6 Chloride Level 104 Carbon Dioxide Level 29.3 Anion Gap 7 Blood Urea Nitrogen 13 Creatinine 0.97 Estimat Glomerular Filtration 94 Rate Random Glucose 97 Calcium Level 9.0 Total Bilirubin 0.6 Aspartate Amino Transf 39 (AST/SGOT) Alanine Aminotransferase 64 (ALT/SGPT) Alkaline Phosphatase 77 Total Protein 7.3 Albumin 3.8 Result Diagram: 09/23/16182409/23/161824 Imaging Last Impressions Head CT 09/23/161819 Signed Impressions: Service Date/Time: August 18:34 - CONCLUSION: 1. No acute hemorrhage, infarct, mass effect or midline shift. 2. Prominent CSF space posterior to the left cerebellar hemisphere consistent with probable arachnoid cyst measuring 6.5 cm transverse by 2.0 cm AP. López Wilson MD Head Magnetic Resonance Angiography 09/23/16 0000 Signed Impressions: Service Date/Time: August 20:54 - CONCLUSION: No acute disease. López Wilson MD Carotid Artery Ultrasound 09/23/16 0000 Signed Impressions: Service Date/Time: August 21:28 - CONCLUSION: No acute disease. López Wilson MD Brain MRI 09/23/16 0000 Signed Impressions: Service Date/Time: August 20:54 - CONCLUSION: 1. Arachnoid cyst posterior to the left cerebellar hemisphere measuring 6.5 x 2.0 cm. 2. No acute infarct, acute hemorrhage, midline shift or abnormal enhancing mass lesion. López Wilson MD Assessment and Plan Assessment and Plan (1) Arachnoid cyst ICD Code: G93.0 Status: Acute (2) Head ache ICD Code: R51 Status: Acute Attending Statement I have reviewed his clinical and further studies. neuro checks in a serial fashion. He is a arachnoid cyst is an incidental finding. No neurosurgical intervention is required Recommend to consult neurology for evaluation and treatment of his headaches Respiratory. pulmonary toilette, nasotracheal suction, and breathing treatments with nebulizers. PT and OT eval Nutrition. NPO Renal. monitor closely urine output, BUN and creatinine Endocrine. Monitor serial Acu checks and SSI for tight control ID monitor for signs of infection Protonix for stress ulcer prophylaxis Hank hose and SCD's for DVT prophylaxis Louie Olivarez MD Sep 24, 2016 04:15
[2016-09-24 05:30] VITALS: BP 141/87; PULSE 73; RESP 14; O2SAT 97
--- NOTE | 2016-09-24 06:02 | MB ---
cc: HECTOR GOMEZ M.D. DATE OF CONSULTATION 09/23/2016 REASON FOR CONSULTATION Headache and left-sided weakness. HISTORY OF PRESENT ILLNESS Shiva is a 26-year-old male who has a history of migraine headaches who woke up this morning with severe headache in the back of the head and the top of the head, pounding in nature with photophobia and some nausea, also numbness and tingling in the left two to five digits, weakness of the left arm and left hand which started about 02:30 this afternoon. He had no weakness of the leg, no speech changes. He states that when he was in the seventh grade he was found to have a cyst on the brain. PAST MEDICAL HISTORY Hypertension. PAST SURGICAL HISTORY No prior surgery MEDICINES AT HOME Ibuprofen. ALLERGIES MORPHINE. NEUROLOGIC EXAMINATION VITAL SIGNS: Blood pressure of 144/87, pulse 91, respiratory rate is 18, temperature 98 degrees. Higher cortical functions are normal. Cranial nerves intact. On motor exam he has trace weakness of the left arm proximally and distally at 4+/5 with slightly diminished fine motor skills of the left hand. He has some numbness of the left hand. Reflexes are symmetric. Lower extremity strength is normal. IMAGING STUDIES CT of the brain shows no acute change. He has got an arachnoid cyst left cerebellar hemisphere. LABORATORY DATA White count 8800, hemoglobin 15.2, hematocrit of 44.9, platelet count 200,000. PT 10.8. INR 1. APTT 25.7. Sodium is 140, potassium 4.6, chloride 104, CO2 29.3. The BUN is 13, creatinine 0.97, GFR is 94. IMPRESSION 1. 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 2. Arachnoid cyst, probable asymptomatic. RECOMMENDATION 1. Start the patient on aspirin. 2. Also obtain an MRI/MRA of the brain, carotid ultrasound, echocardiogram. 3. May need to consider transesophageal echo, depending on the above studies. 4. Also check a lipid panel as well as a hypercoagulable state. MD DIVINE Landeros/MELANIE /8:43 PM /5:55 AM
[2016-09-24 08:04] VITALS: BP 126/59; PULSE 56; RESP 18; TEMP 97; O2SAT 95
[2016-09-24] MEDS ORDERED: ASPIRIN EC 325 MG TABEC PO SCH (09:00)
[2016-09-24 09:41] VITALS: PULSE 96
[2016-09-24] MEDS ORDERED: HYDR-3533 PO (11:18)
[2016-09-24] MEDS ORDERED: NAPR500 PO (11:18)
[2016-09-24] MEDS ORDERED: Aspirin Ec PO (11:18)
--- NOTE | 2016-09-24 11:26 | HHI.PR ---
Subjective Remarks REEVES much improved from admission. Pt got considerable relief with IV toradol. Pt tolerating PO intake. NO n/v. Objective Vitals Vital Signs Date Time Temp Pulse Resp B/P Pulse Ox O2 Delivery O2 Flow Rate FiO2 09/24/16 09:41 96 09/24/16 08:04 97.0 56 18 126/59 95 09/24/16 05:30 73 14 141/87 97 Room Air 09/24/16 01:16 74 18 136/68 98 Room Air 09/23/16 23:49 18 09/23/16 22:59 83 18 129/80 97 Room Air 09/23/16 19:51 91 18 144/87 97 Room Air 09/23/16 18:23 18 98 Room Air 09/23/16 18:14 97 18 97 Room Air 09/23/16 18:14 94 18 164/95 97 Room Air 09/23/16 17:20 98.1 105 20 180/89 99 Result Diagram: 09/23/16182409/23/161824 Imaging Last Impressions Head CT 09/23/160 Signed Impressions: Service Date/Time: August 18:34 - CONCLUSION: 1. No acute hemorrhage, infarct, mass effect or midline shift. 2. Prominent CSF space posterior to the left cerebellar hemisphere consistent with probable arachnoid cyst measuring 6.5 cm transverse by 2.0 cm AP. López Wilson MD Head Magnetic Resonance Angiography 09/23/16 0000 Signed Impressions: Service Date/Time: August 20:54 - CONCLUSION: No acute disease. López Wilson MD Carotid Artery Ultrasound 09/23/16 0000 Signed Impressions: Service Date/Time: August 21:28 - CONCLUSION: No acute disease. López Wilson MD Brain MRI 09/23/16 0000 Signed Impressions: Service Date/Time: August 20:54 - CONCLUSION: 1. Arachnoid cyst posterior to the left cerebellar hemisphere measuring 6.5 x 2.0 cm. 2. No acute infarct, acute hemorrhage, midline shift or abnormal enhancing mass lesion. López Wilson MD Objective Remarks GENERAL: This is a well-nourished, well-developed patient, in no apparent distress. CARDIOVASCULAR: Regular rate and rhythm without murmurs, gallops, or rubs. RESPIRATORY: Clear to auscultation. Breath sounds equal bilaterally. No wheezes , rales, or rhonchi. GASTROINTESTINAL: Abdomen soft, non-tender, nondistended. Normal active bowel sounds MUSCULOSKELETAL: Extremities without clubbing, cyanosis, or edema. NEURO: Alert & Oriented x3, [place], neck was supple A/P Problem List: (1) Head ache Status: Acute Plan: - REEVES now improved - Pt had considerable w/u - Pt has incidental finding of arachnoid cyst - Pt seen by both Neurosurgery and Neurology - Neurosurgery, Dr. Olivarez, does NOT feel that the arachnoid cyst is the causing the pt's pain. - Dr. Olivarez did NOT feel that surgery would be required - pain improved with IV toradol - Dr. Ovalle ordered hypercoag w/u --> results pending - Dr. Ovalle ordered echocardiogram --> performed (09/24/16), reading is pending - will discharge pt to home today & he can return to work 09/27/16 - f/u with new PCP in 1 week - f/u with Neurology, Dr. Allan Ovalle, in 2 weeks. - Naprosyn 500mg q6h prn REEVES (2) Arachnoid cyst Status: Acute Plan: - see above Problem Qualifiers (1) Head ache: Qualified Code: R51 - Intractable headache, unspecified chronicity pattern, unspecified headache type Glenn Meyer DO Sep 24, 2016 11:26
--- NOTE | 2016-09-24 11:31 | HHI.DCPOC ---
Discharge Care Plan Diagnosis: (1) Arachnoid cyst (2) Head ache Goals to Promote Your Health * To prevent worsening of your condition and complications * To maintain your health at the optimal level Directions to Meet Your Goals Take your medications as prescribed Follow your dietary instruction Follow activity as directed Keep your appointments as scheduled Take your immunizations and boosters as scheduled If your symptoms worsen call your PCP, if no PCP go to Urgent Care Center or Emergency Room Smoking is Dangerous to Your Health. Avoid second hand smoke Call the 24-hour hour crisis hotline for domestic abuse at Patient to follow up with new primary care physician in one week. Patient to follow up with Neurologist in 2 weeks. Patient will need to call to arrange these appointments. If headache pain is NOT relieved with current medication regiment, then patient should either call his primary care doctor or Neurologist. Otherwise patient should return to the ER for unrelieved headache pain. Glenn Meyer DO Sep 24, 2016 11:31
[2016-09-27 17:54] LABS: THROMBIN TIME FOR LA ND sec (13-19)
--- NOTE | 2016-09-28 11:08 | EC ---
Study Study Date:09/24/2016 STUDY CONCLUSIONS SUMMARY - Left ventricle: The cavity size was normal. Wall thickness was normal. Systolic function was normal. The estimated ejection fraction was in the range of 55% to 60%. Wall motion was normal; there were no regional wall motion abnormalities. - Atrial septum: A patent foramen ovale cannot be excluded. If LV function is below 40, please consider prescribing an ACEI or ARB or document rationale for non-use. PROCEDURE DATA STUDY STATUS: Elective. Procedure: Transthoracic echocardiography. Image quality was fair. The study was technically limited due to poor acoustic window availability. Scanning was performed from the parasternal and apical acoustic windows. Study completion: The patient tolerated the procedure well. Transthoracic echocardiography. M-mode, complete 2D, complete spectral Doppler, and color Doppler. Patient status: Inpatient. CARDIAC ANATOMY LEFT VENTRICLE: The cavity size was normal. Wall thickness was normal. Systolic function was normal. The estimated ejection fraction was in the range of 55% to 60%. Wall motion was normal; there were no regional wall motion abnormalities. AORTIC VALVE: Probably trileaflet. Doppler: There was no stenosis. No significant regurgitation. MITRAL VALVE: The valve appears to be grossly normal. Doppler: There was no evidence for stenosis. No significant regurgitation. LEFT ATRIUM: The atrium was normal in size. ATRIAL SEPTUM: A patent foramen ovale cannot be excluded. RIGHT VENTRICLE: The cavity size was normal. PULMONIC VALVE: Not well visualized. Doppler: There was no evidence for stenosis. No significant regurgitation. TRICUSPID VALVE: The valve appears to be grossly normal. Doppler: There was no evidence for stenosis. No significant regurgitation. PERICARDIUM: There was no pericardial effusion. BASIC MEASUREMENTS ADULT Normal Left ventricle LV internal dimension, ED, chordal level, *54.6 mm 43-52 PLAX LV internal dimension, ES, chordal level, *41.9 mm 23-38 PLAX Fractional shortening, chordal level, PLAX *23 % >29 LV posterior wall thickness, ED 9.47 mm IVS/LVPW ratio, ED 0.67 <1.3 Ventricular septum Septal thickness, ED 6.3 mm Aortic valve Leaflet separation 22 mm 15-26 Left atrium Anterior-posterior dimension 34 mm Right ventricle RV internal dimension, ED, PLAX 22.5 mm 19-38 BASIC MEASUREMENTS ADULT Normal Aortic valve Leaflet separation 22 mm 15-26 Aorta Root diameter, ED 31 mm 20-37 DOPPLER MEASUREMENTS ADULT Normal Mitral valve Peak E-wave velocity 58.2 cm/s Peak A-wave velocity 64.8 cm/s Peak E/A ratio 0.9 Tricuspid valve Regurgitant peak velocity 200 cm/s Peak RV-RA gradient, S 16 mm Hg Maximal regurgitant velocity 200 cm/s LEGEND: Mean values are shown as u=mean value. Asterisk (*) ceron values outside specified normal range. Prepared and signed by Yung Cisneros [id number]
== END 2016-09-24 14:46 | disposition home or self-care (01) ==
LOC: NEPC 17:14 → NEDA 19:59 → INTOOBSV 19:59 → NEDH 23:59 → NEPGCP 09-24 07:44
PROVIDERS: ADMIT Hospitalist; ATTEND Hospitalist
DX: R51 Headache (principal); G93.0 Cerebral cysts; I10 Essential (primary) hypertension; Z88.5 Allergy status to narcotic agent
CPT/HCPCS: 70450; 70544; 70553; 80053; 81240; 81241; 85025; 85303; 85306; 85610; 85613; 85730; 86147; 93306; 93880; 96374; 96375; 99285; A9579; G0378; J1885; J2405; J7030

== ENCOUNTER 2017-06-01 08:54 | Emergency (ER) | payer OTHER ==
[~2017-06-01] VITALS: Ht 167.6 cm; Wt 105.0 kg
[~2017-06-01 08:54] MED LIST changes: -ASPI81CH CHEW; +Aspirin Ec PO; -IBUP800T23 PO; +NAPR500 PO; -ZOFR4TAB3 SL
[2017-06-01 08:56] VITALS: BP 172/72; PULSE 26; PULSE 84; RESP 14; RESP 18; TEMP 98.9; O2SAT 99
[2017-06-01] MEDS ORDERED: CLOT1CRE6 TOPICAL (10:18)
[2017-06-01] MEDS ORDERED: CIPR750T2 PO (10:18)
[2017-06-01] MEDS ORDERED: DOXY100C PO (10:18)
--- NOTE | 2017-06-01 10:27 | PD ---
HPI Chief Complaint: Skin Problem Time Seen by Provider: 09:59 Travel History International Travel<30 days: No Contact w/Intl Traveler<30days: No Traveled to known affect area: No History of Present Illness HPI 26-year-old male presents to the emergency room for evaluation of painful lesions to bilateral feet for the past 2 days. Patient [place] a two-hour period. He started noticing small lesions that have since worsened. He has associated swelling in the toes. Significant pain with ambulation or range of motion of the toes. Patient reports fever 102 last night. He has been taking TheraFlu and Aleve to help with pain and fever. Denies any chronic medical conditions or daily medications. States he is prediabetic. Unknown last tetanus. PFSH Past Medical History Blood Disorders: No Anxiety: No Depression: No Cardiovascular Problems: Yes (HTN) Endocrine: No Hypertension: Yes Musculoskeletal: No Neurologic: No Psychiatric: No Past Surgical History Surgical History: No Previous Surgery Other Surgery: No Social History Alcohol Use: No Tobacco Use: No Substance Use: No Allergies-Medications (Allergen,Severity, Reaction): Coded Allergies: morphine (Unverified Allergy, Severe, ANAPHYLAXIS, 06/01/17) Reported Meds & Prescriptions Reported Meds & Active Scripts Active Clotrimazole Anti-Fungal Topical (Clotrimazole) 1% Cream 1 Applic TOPICAL BID Doxycycline Hyclate 100 Mg Cap 100 Mg PO BID Ciprofloxacin (Ciprofloxacin HCl) 750 Mg Tab 750 Mg PO BID 10 Days Review of Systems Except as stated in HPI: all other systems reviewed are Neg Physical Exam Narrative GENERAL: Well-nourished, well-developed male in no acute distress. Afebrile. Ambulatory. SKIN: Focused skin assessment warm/dry. Spontaneously draining superficial ulcerations to bilateral feet especially between the toes. Superficial abscesses to the right second and third toes with purulent drainage. No surrounding erythema. No lymphangitis. HEAD: Normocephalic. EYES: No scleral icterus. No injection or drainage. NECK: Supple, trachea midline. No JVD or lymphadenopathy. CARDIOVASCULAR: Regular rate and rhythm without murmurs, gallops, or rubs. RESPIRATORY: Breath sounds equal bilaterally. No accessory muscle use. MUSCULOSKELETAL: No cyanosis. Moderate edema of the bilateral feet, right worse than left. 2+ dorsalis pedis pulses bilaterally. Data Data Last Documented VS Vital Signs Date Time Temp Pulse Resp B/P (MAP) Pulse Ox O2 Delivery O2 Flow Rate FiO2 06/01/17 08:56 98.9 84 14 172/72 (105) 99 Orders Orders Tetanus/Diphtheria Tox Adult (Tetanus/Di (06/01/17 10:30) Ed Discharge Order (06/01/17 10:27) MDM Medical Decision Making Medical Screen Exam Complete: Yes Emergency Medical Condition: Yes Medical Record Reviewed: Yes Differential Diagnosis Tinea pedis, contact dermatitis, bacterial infection, MRSA, vibrio Narrative Course 26-year-old male presents to the emergency room for evaluation of painful lesions to his feet for the past 2 days. Lesions developed after he spent 2 [place] the river water [place] jet ski. He has associated fever of 102 last night. Patient denies history of diabetes. Physical exam is consistent with tinea pedis with secondary bacterial infection. The infection appears to be localized to the bilateral toes, right worse than left. No lymphangitis. Bilateral extremities are neurovascularly intact. Patient was updated on tetanus. Patient will be treated with clotrimazole, doxycycline, and ciprofloxacin to cover for fungus, vibrio, MRSA, staph, strep, and Pseudomonas. Told to follow-up with the PCP or return in 3 days for wound recheck if symptoms are not improving. He understands and agrees to plan. Diagnosis Primary Impression: Tinea pedis Qualified Codes: B35.3 - Tinea pedis Additional Impression: Bacterial skin infection Referrals: Primary Care Physician Departure Forms: Tests/Procedures, Work Release Enter return to work date: Jun 05, 2017 Additional Instructions: Keep wounds clean and dry. Elevate legs as much as possible. Take doxycycline, ciprofloxacin as directed, until gone. Clotrimazole as directed. Follow up with a primary care physician. Return to emergency room for worsening symptoms, as discussed. Med/Other Pt SpecificInfo: Prescription(s) given Scripts Clotrimazole Topical (Clotrimazole Anti-Fungal Topical) 1% Cream 1 APPLIC TOPICAL BID for Fungal Infection, #1 TUBE 0 Refills Prov: Twila Salter MD 06/01/17 Doxycycline Hyclate (Doxycycline Hyclate) 100 Mg Cap 100 MG PO BID for Infection, #20 CAP 0 Refills Prov: Twila Salter MD 06/01/17 Ciprofloxacin (Ciprofloxacin) 750 Mg Tab 750 MG PO BID for Infection for 10 Days, #20 TAB 0 Refills Prov: Twila Salter MD 06/01/17 Disposition: 01 DISCHARGE HOME Condition: Stable Emily Rosas Jun 01, 2017 10:27
[2017-06-01] MEDS ORDERED: TETANUS/DIPHTHERIA TOXOID ADULT 0.5 ML VIAL IM ONE (10:30)
== END 2017-06-01 10:50 | disposition home or self-care (01) ==
LOC: NEPK 08:54
DX: B35.3 Tinea pedis (principal); Z23 Encounter for immunization
CPT/HCPCS: 90471; 90714

== ENCOUNTER 2017-06-05 15:31 | Emergency (ER) | payer OTHER ==
[~2017-06-05] VITALS: Ht 167.6 cm; Wt 128.0 kg
[~2017-06-05 15:31] MED LIST changes: -Aspirin Ec PO; +CIPR750T2 PO; +CLOT1CRE6 TOPICAL; +DOXY100C PO; -NAPR500 PO
[2017-06-05 15:34] VITALS: BP 174/114; PULSE 114; RESP 18; TEMP 98.7; O2SAT 98
[2017-06-05] MEDS ORDERED: SODIUM CHLOR 0.9% 1000 ML INJ 1,000 ML IV SCH (16:10)
[2017-06-05] MEDS ORDERED: SODIUM CHLORIDE 0.9% FLUSH 10 ML FLUSH IV FLUSH PRN (16:15)
[2017-06-05] MEDS ORDERED: CLINDAMYCIN 600 MG/NS PREMIX 50 ML IV ONE (16:15)
[2017-06-05 16:45] LABS: AUTOMATED NEUTROPHIL # 4.9 TH/MM3 (1.8-7.7); BASOPHIL # 0.1 TH/MM3 (0-0.2); BASOPHIL % 0.7 % (0.0-2.0); EOSINOPHIL # 0.3 TH/MM3 (0-0.4); EOSINOPHIL % 3.2 % (0.0-4.0); HEMATOCRIT 47.8 % (39.0-51.0); HEMO FLAGS DIFF FINAL; LYMPHOCYTE # 2.5 TH/MM3 (1.0-4.8); MEAN CELL VOLUME 83.2 FL (80.0-100.0); MEAN CORPUSCULAR HEMOGLOBIN 28.5 PG (27.0-34.0); MEAN CORPUSCULAR HGB CONC 34.3 % (32.0-36.0); MONO % 6.6 % (0.0-8.0); NEUT % 59.5 % (16.0-70.0); PLATELET COUNT 239 TH/MM3 (150-450); RED BLOOD COUNT 5.75 MIL/MM3 (4.50-5.90); RED CELL DISTRIBUTION WIDTH 13.6 % (11.6-17.2); WHITE BLOOD COUNT 8.2 TH/MM3 (4.0-11.0)
[2017-06-05 16:59] LABS: BICARBONATE 26.1 MEQ/L (21.0-32.0); POTASSIUM 4.4 MEQ/L (3.5-5.1)
--- NOTE | 2017-06-05 17:02 | RADRPT ---
EXAM DATE/TIME: 06/05/2017 16:40 [facility] COMPARISON: No previous studies available for comparison. INDICATIONS : Infection right foot. Swelling. MEDICAL HISTORY : Osteomyelitis. SURGICAL HISTORY : None. ENCOUNTER: Initial ACUITY: 2 weeks PAIN SCORE: 7/10 LOCATION: Right lateral FINDINGS: No fracture is seen. The bones and joints are normally aligned. No areas of bony destruction are seen . The joints appear intact. There does appear to be soft tissue swelling at the fourth digit. There i s minimal spurring at the plantar aponeurosis attachment site at the posterior calcaneus. CONCLUSION: The bones appear grossly intact. Darrius Espinosa MD on June 05, 2017 at 16:59 Board Certified Radiologist. This report was verified electronically.
[2017-06-05] MEDS ORDERED: CLIN150C14 PO (17:32)
--- NOTE | 2017-06-05 17:32 | PD ---
HPI Chief Complaint: Pain: Acute or Chronic Time Seen by Provider: 15:56 Travel History International Travel<30 days: No Contact w/Intl Traveler<30days: No Traveled to known affect area: No History of Present Illness HPI 26-year-old male previously seen here 5 days ago, and diagnosed with cellulitis and tinea pedis of both feet and toes. Patient was discharged home with antifungal cream, as well as doxycycline 100 mg twice a day and Cipro 750 twice a day. She states he was able to get the Cipro and antifungal cream, doxycycline as the pharmacy did not have it in stock. Patient returns today is he has continued drainage from the right third toe, which she feels is more swollen and appears more erythematous. He states the rest of the infection seems to be improving. He denies fever, chills, or significant pain. He feels somewhat numb on the third right toe. Patient is allergic to morphine. PFSH Past Medical History Blood Disorders: No Anxiety: No Depression: No Cardiovascular Problems: Yes (HTN) Diminished Hearing: No Endocrine: No Hypertension: Yes Musculoskeletal: No Neurologic: No Psychiatric: No Immunizations Current: No Tetanus Vaccination: < 5 Years Influenza Vaccination: No Past Surgical History Other Surgery: No Social History Alcohol Use: No Tobacco Use: No Substance Use: No Allergies-Medications (Allergen,Severity, Reaction): Coded Allergies: morphine (Unverified Allergy, Severe, ANAPHYLAXIS, 06/01/17) Reported Meds & Prescriptions Reported Meds & Active Scripts Active Clindamycin (Clindamycin HCl) 150 Mg Cap 300 Mg PO Q6H 7 Days Clotrimazole Anti-Fungal Topical (Clotrimazole) 1% Cream 1 Applic TOPICAL BID Doxycycline Hyclate 100 Mg Cap 100 Mg PO BID Ciprofloxacin (Ciprofloxacin HCl) 750 Mg Tab 750 Mg PO BID 10 Days Review of Systems Except as stated in HPI: all other systems reviewed are Neg General / Constitutional: No: Fever, Chills Eyes: No: Visual changes HENT: No: Headaches Cardiovascular: No: Chest Pain or Discomfort Respiratory: No: Shortness of Breath Gastrointestinal: No: Abdominal Pain Genitourinary: No: Dysuria Musculoskeletal: No: Pain Skin: Positive Lesions, No Rash Neurologic: No: Weakness Psychiatric: No: Depression Endocrine: No: Polydipsia Hematologic/Lymphatic: No: Easy Bruising Physical Exam Narrative GENERAL: Patient appears in no acute distress. SKIN: Warm and dry. Color. Normal turgor. Patient has obvious draining cellulitis to the right third distal toe without significant warmth or erythema or streaking to the proximal foot. The rest of the previous infected areas seem to be improving. There is expressible pus without significant pain to the distal third toe of the right foot. HEAD: Atraumatic. Normocephalic. EYES: Pupils equal and round. No scleral icterus. No injection or drainage. ENT: No nasal bleeding or discharge. Mucous membranes pink and moist. Thanks is clear. Airway is patent. NECK: Trachea midline. Supple and nontender. CARDIOVASCULAR: Regular rate and rhythm. RESPIRATORY: No accessory muscle use. Clear to auscultation. Breath sounds equal bilaterally. MUSCULOSKELETAL: Extremities without clubbing, cyanosis, or edema. No obvious deformities. NEUROLOGICAL: Awake and alert. No obvious cranial nerve deficits. Motor grossly within normal limits. Five out of 5 muscle strength in the arms and legs. Normal speech. PSYCHIATRIC: Appropriate mood and affect; insight and judgment normal. Data Data Last Documented VS Vital Signs Date Time Temp Pulse Resp B/P (MAP) Pulse Ox O2 Delivery O2 Flow Rate FiO2 06/05/17 15:34 98.7 114 18 174/114 (134) 98 Orders Orders Basic Metabolic Panel (Bmp) (06/05/17 16:10) Complete Blood Count With Diff (06/05/17 16:10) Iv Access Insert/Monitor (06/05/17 16:10) Ecg Monitoring (06/05/17 16:10) Oximetry (06/05/17 16:10) Sodium Chlor 0.9% 1000 Ml Inj (Ns 1000 M (06/05/17 16:10) Sodium Chloride 0.9% Flush (Ns Flush) (06/05/17 16:15) Clindamycin 600 Mg/Ns Premix (Cleocin 60 (06/05/17 16:15) Foot, Complete (Pec2liu) (06/05/17 16:10) Wound Culture And Gram Stain (06/05/17 16:35) Labs Laboratory Tests Test 06/05/17 16:00 White Blood Count 8.2 TH/MM3 Red Blood Count 5.75 MIL/MM3 Hemoglobin 16.4 GM/DL Hematocrit 47.8 % Mean Corpuscular Volume 83.2 FL Mean Corpuscular Hemoglobin 28.5 PG Mean Corpuscular Hemoglobin Concent 34.3 % Red Cell Distribution Width 13.6 % Platelet Count 239 TH/MM3 Mean Platelet Volume 7.4 FL Neutrophils (%) (Auto) 59.5 % Lymphocytes (%) (Auto) 30.0 % Monocytes (%) (Auto) 6.6 % Eosinophils (%) (Auto) 3.2 % Basophils (%) (Auto) 0.7 % Neutrophils # (Auto) 4.9 TH/MM3 Lymphocytes # (Auto) 2.5 TH/MM3 Monocytes # (Auto) 0.5 TH/MM3 Eosinophils # (Auto) 0.3 TH/MM3 Basophils # (Auto) 0.1 TH/MM3 CBC Comment DIFF FINAL Differential Comment Blood Urea Nitrogen 11 MG/DL Creatinine 0.96 MG/DL Random Glucose 103 MG/DL Calcium Level 9.1 MG/DL Sodium Level 139 MEQ/L Potassium Level 4.4 MEQ/L Chloride Level 108 MEQ/L Carbon Dioxide Level 26.1 MEQ/L Anion Gap 5 MEQ/L Estimat Glomerular Filtration Rate 95 ML/MIN MDM Medical Decision Making Medical Screen Exam Complete: Yes Emergency Medical Condition: Yes Medical Record Reviewed: Yes Differential Diagnosis MRSA. Cellulitis. Tinea. Osteomyelitis. Draining abscess. Narrative Course Labs ordered including CBC, CMP, and culture of the right toe wound drainage. IV access is obtained and patient is given 600 mg clindamycin IV. X-ray of the right third toe was ordered. X-ray shows no obvious bony abnormalities. CBC and CMP are within normal limits. Patient is felt stable for discharge with continued clindamycin 300 mg 4 times a day 7 days. The patient is to continue the Cipro as previously prescribed as well as the antifungal cream. Patient is given Dr. Ragsdale the plate sensitizer on-call number for follow-up if symptoms do not seem to continue to improve or worsen. Diagnosis Primary Impression: Cellulitis of third toe, right Referrals: Marian Ragsdale DPM as needed Patient Instructions: Cellulitis (ED), General Instructions Additional Instructions: X-ray shows no obvious bony abnormalities. CBC and CMP are within normal limits. Patient is felt stable for discharge with continued clindamycin 300 mg 4 times a day 7 days. The patient is to continue the Cipro as previously prescribed as well as the antifungal cream. Patient is given Dr. Ragsdale, the plate sensitizer on-call number for follow-up if symptoms do not seem to continue to improve or worsen. Med/Other Pt SpecificInfo: Prescription(s) given Scripts Clindamycin (Clindamycin) 150 Mg Cap 300 MG PO Q6H for Infection for 7 Days, #56 CAP 0 Refills Prov: Jackie Patel DO 06/05/17 Disposition: 01 DISCHARGE HOME Condition: Stable Miles Kolb Jun 05, 2017 17:32
== END 2017-06-05 18:40 | disposition home or self-care (01) ==
LOC: NEPD 15:31
DX: L03.031 Cellulitis of right toe (principal); A49.01 Methicillin susceptible Staphylococcus aureus infection, unspecified site; B95.5 Unspecified streptococcus as the cause of diseases classified elsewhere; I10 Essential (primary) hypertension; Z79.899 Other long term (current) drug therapy; Z88.5 Allergy status to narcotic agent
CPT/HCPCS: 73630; 80048; 85025; 86403; 87070; 87185; 87186; 96365; 99284; J7030; 87205

== ENCOUNTER 2017-09-10 10:34 | Emergency (ER) | payer OTHER ==
[~2017-09-10] VITALS: Ht 167.6 cm; Wt 105.0 kg
[~2017-09-10 10:34] MED LIST changes: +CLIN150C14 PO
[2017-09-10 10:36] VITALS: BP 138/92; PULSE 103; RESP 18; TEMP 98.2; O2SAT 65; O2SAT 98
[2017-09-10 10:44] VITALS: PULSE 116; RESP 24; O2SAT 98
--- NOTE | 2017-09-10 11:08 | PD ---
HPI Chief Complaint: Skin Problem Time Seen by Provider: 10:55 Travel History International Travel<30 days: No Contact w/Intl Traveler<30days: No Traveled to known affect area: No History of Present Illness HPI Patient comes emergency department complaining of pruritic rash that began on his bilateral lower extremities yesterday since moved to his trunk. Patient denies any known new allergen exposures, including but not limited to soaps, lotions, detergents, foods, pets, or furniture. Patient reports rash began while he was driving his car to see his parents. Patient reports taking Benadryl with minimal relief of symptoms. Denies any fevers, weight loss, chest pain, shortness of breath, or sensation of throat closing. Patient has anything making it worse. Severity mild. Denies any pain or radiation of pain. PFSH Past Medical History Blood Disorders: No Anxiety: No Depression: No Cardiovascular Problems: Yes (HTN) Diminished Hearing: No Endocrine: No Hypertension: Yes Implanted Vascular Access Dvce: No Musculoskeletal: No Neurologic: No Psychiatric: No Immunizations Current: No Past Surgical History Other Surgery: No Social History Alcohol Use: No Tobacco Use: No Substance Use: No Allergies-Medications (Allergen,Severity, Reaction): Coded Allergies: morphine (Unverified Allergy, Severe, ANAPHYLAXIS, 06/01/17) Reported Meds & Prescriptions Reported Meds & Active Scripts Active Medrol Dosepak (Methylprednisolone) 4 Mg Dspk 4 Mg PO DIRECTED Per Pharmacist direction Pepcid (Famotidine) 20 Mg Tab 20 Mg PO BID 10 Days Review of Systems Except as stated in HPI: all other systems reviewed are Neg Physical Exam Narrative GENERAL: Well-developed, overly nourished, in no acute distress, and non-ill appearing. SKIN: Focused skin assessment warm and dry. Urticaria noted on trunk. Is blanching. Nonerythematous. No crepitus. No drainage. HEAD: Atraumatic. Normocephalic. EYES: Pupils equal and round. EOMI. No scleral icterus. No injection or drainage. ENT: No nasal bleeding or discharge. Mucous membranes pink and moist. NECK: Trachea midline. No stridor. Supple. No nuclear rigidity. CARDIOVASCULAR: Regular rate and rhythm. No murmur appreciated. RESPIRATORY: No accessory muscle use. No respiratory distress. Clear to auscultation. Breath sounds equal bilaterally. No stridor. Patient speaking in full sentences without difficulty. MUSCULOSKELETAL: No obvious deformities. No clubbing. No cyanosis. No edema. Full range of motion. NEUROLOGICAL: Awake and alert. No obvious cranial nerve deficits. Motor grossly within normal limits. Normal speech. PSYCHIATRIC: Appropriate mood and affect; insight and judgment normal. Data Data Last Documented VS Vital Signs Date Time Temp Pulse Resp B/P (MAP) Pulse Ox O2 Delivery O2 Flow Rate FiO2 09/10/17 10:44 116 24 98 09/10/17 10:36 98.2 138/92 (107) Orders Orders Prednisone (Deltasone) (09/10/17 11:15) Diphenhydramine (Benadryl) (09/10/17 11:15) Famotidine (Pepcid) (09/10/17 11:15) Ed Discharge Order (09/10/17 12:46) [facility] Medical Decision Making Medical Screen Exam Complete: Yes Emergency Medical Condition: Yes Differential Diagnosis Allergic reaction, nonspecific rash, pityriasis rosea Narrative Course Appears allergic reaction. There is no airway involvement nor difficulty swallowing. Patient looks great. The patient is tolerating fluids. The patient looks great, the findings are minimal and due to non-progression of symptoms here the patient is safe to discharge home. The patient feels comfortable with plan and will return immediately if symptoms begin to worsen. The rash is not consistent with erythema multiforme at this time. The patient is to continue histamine 1 and 2 blockade as well as steroids. The patient was instructed to avoid potential precipitating factor and to follow up with their regular physician and or follow up with recovery specialist for definitive allergy testing. The patient agrees with plan. Patient in no obvious distress upon re-evaluation. Patient was asked if they wanted to speak to my attending, which the patient did not wish to do at this time. Any questions/concerns in reference to patient diagnosis/condition discussed and clarified prior to patient's discharge. Reinforced sheer importance of close follow up with patient's primary physician or primary care clinic. Instructed patient to return to ED immediately, if symptoms return/ worsen. Patient showed understanding of above instructions. Further instructions and recommendations were detailed in discharge paperwork. Patient ambulated without difficulty out of ED at discharge. Diagnosis Primary Impression: Pruritic rash Referrals: [facility] Patient Instructions: Acute Rash (ED), General Allergic Reaction (ED), General Instructions Additional Instructions: Follow-up with your primary care physician for reevaluation and possible allergy testing in 3-5 days. Take all medication as prescribed. Use over-the- counter Claritin, Zyrtec, or Benadryl for symptomatic relief. Follow instructions on the packaging. Return to the emergency department if symptoms get worse. Med/Other Pt SpecificInfo: Prescription(s) given Scripts Methylprednisolone Dosepak (Medrol Dosepak) 4 Mg Dspk 4 MG PO DIRECTED, #1 DSPK 0 Refills Per Pharmacist direction Prov: Rosi Osorio MD 09/10/17 Famotidine (Pepcid) 20 Mg Tab 20 MG PO BID for 10 Days, #20 TAB 0 Refills Prov: Rosi Osorio MD 09/10/17 Disposition: 01 DISCHARGE HOME Condition: Stable Claudio Lorenz Sep 10, 2017 11:08
[2017-09-10] MEDS ORDERED: diphenhydrAMINE HCL 25 MG CAP PO ONE (11:15)
[2017-09-10] MEDS ORDERED: FAMOTIDINE 20 MG TAB PO ONE (11:15)
[2017-09-10] MEDS ORDERED: predniSONE 20 MG TAB PO ONE (11:15)
[2017-09-10] MEDS ORDERED: MEDR4PAK PO (12:46)
[2017-09-10] MEDS ORDERED: FAMO1TAB37 PO (12:46)
== END 2017-09-10 13:04 | disposition home or self-care (01) ==
LOC: NEPD 10:34
DX: L29.9 Pruritus, unspecified (principal); I10 Essential (primary) hypertension
CPT/HCPCS: 99283; J7512